=== PATIENT | female | born 1980 | race African-American/Black ===

== ENCOUNTER 2023-07-22 16:16 | Emergency (ER) | payer SELFPAY ==
[2023-07-22] MEDS ORDERED: Lidocaine 1% PF 5 ML VIAL ONE (16:44)
== END 2023-07-22 17:55 | disposition home or self-care (01) ==
LOC: ERS 16:16
DX: N61.1 Abscess of the breast and nipple (principal); I10 Essential (primary) hypertension; F17.210 Nicotine dependence, cigarettes, uncomplicated; Z55.6 Problems related to health literacy
CPT/HCPCS: 10060

== ENCOUNTER 2023-07-27 10:26 | Emergency (ER) | payer SELFPAY | END 2023-07-27 12:54 | disposition home or self-care (01) | LOC: ERS 10:26 | DX: Z48.01 Encounter for change or removal of surgical wound dressing (principal); I10 Essential (primary) hypertension; F17.210 Nicotine dependence, cigarettes, uncomplicated | CPT/HCPCS: 99282 ==

== ENCOUNTER 2025-01-31 09:48 | Emergency (ER) | payer SELFPAY | END 2025-01-31 10:15 | disposition home or self-care (01) | LOC: ERS 09:48 | DX: I10 Essential (primary) hypertension (principal); Z76.0 Encounter for issue of repeat prescription; F17.210 Nicotine dependence, cigarettes, uncomplicated; Z79.899 Other long term (current) drug therapy | CPT/HCPCS: 99282 ==

== ENCOUNTER 2025-04-07 10:33 | Emergency (ER) | payer SELFPAY | END 2025-04-07 11:54 | disposition home or self-care (01) | LOC: ERS 10:33 | DX: I10 Essential (primary) hypertension (principal); Z76.0 Encounter for issue of repeat prescription; F17.210 Nicotine dependence, cigarettes, uncomplicated; Z71.6 Tobacco abuse counseling | CPT/HCPCS: 99406 ==